=== PATIENT | female | born 1935 | race Caucasian/White ===

== ENCOUNTER 2016-06-10 00:07 | Inpatient (IN) | payer MEDICARE, OTHER ==
--- NOTE | ~2016-06-10 | HP ---
History And Physical [id number] [facility] [place]. [address] NAME: SIMBA GHOSH : 31 STATUS : ADM IN [facility]#: [id number] AGE: 80 ADM/REG DATE : 06/10/16 MR#: [id number] REPORT SERV DATE: 06/10/16 DICTATED BY: JULIO CARTAGENA DATE: 06/10/16 REPORT STATUS : Draft TRANSCRIBED BY: MODL DATE: 06/10/16 DATE OF ADMISSION: 06/10/2016 CHIEF COMPLAINT: This is a patient I had accepted in transfer to [facility] from [facility] where she was an inpatient since 06/05/2016. Actually one of my daytime colleagues had accepted the patient in transfer earlier in the day and she arrived at nighttime. According to data, she was admitted there for acute respiratory failure with hypoxemia, community-acquired pneumonia. She was treated with IV antibiotics and other treatments, and was initially in the Medical Intensive Care Unit, subsequently transferred to the floor when she stabilized. She had a swallow study there which showed she need thicken liquids. Subsequently, the patient and family wanted the patient to be transferred to [facility]. Dr. Lu was called and he facilitated the transfer. At the time of my evaluation here, Mrs. Ghosh was quite comfortable on 2 L of oxygen via nasal cannula. She was alert, awake, oriented and was able to relate or recount everything that had taken place there. Her daughter was by her side. She denied any chest pain or palpitations at this time. She had no cough, hemoptysis, night sweats, or weight loss at this time. She had no nausea, vomiting, or diarrhea. PAST MEDICAL HISTORY: Significant for history of congestive heart failure, history of essential hypertension, valvular heart disease with aortic stenosis, obstructive sleep apnea on CPAP therapy, paroxysmal atrial fibrillation. She has a history of hypothyroidism, peripheral vascular disease with stents to right popliteal, left superficial femoral and right superficial femoral arteries. She has aortic stenosis as mentioned above with aortic area of 1.8 cm2. She has paroxysmal atrial fibrillation, history of GI bleeding in the past as well. She has COPD, coronary artery disease with CABG, gastroesophageal reflux disease, and hyperlipidemia. She also has depression, cholecystectomy, hysterectomy, and multiple lower extremity vascular interventions as per the procedures. SOCIAL HISTORY: She does not smoke, drink, or use recreational drugs. FAMILY HISTORY: Noncontributory. MEDICATIONS: Her medications at home were reviewed by me in the chart today and reordered by me. REVIEW OF SYSTEMS: As in history of present illness. All other systems were reviewed in detail and are quite unremarkable. PHYSICAL EXAMINATION: GENERAL: This is a pleasant 80-year-old, not in any acute distress. She is alert, awake, oriented to time, place, and person. HEENT: Pupils are equal, reacting to light and accommodating. External ocular muscles are intact. Membranes moist and pink. Sclerae are nonicteric. NECK: Supple with no jugular venous distention, lymphadenopathy, or thyromegaly. History And Physical [address] [address] NAME: SIMBA GHOSH : 33 STATUS : ADM IN [facility]#: [id number] AGE: 80 ADM/REG DATE : 06/10/16 MR#: [id number] REPORT SERV DATE: 06/10/16 DICTATED BY: JULIO CARTAGENA DATE: 06/10/16 REPORT STATUS : Draft TRANSCRIBED BY: MARCIO DATE: 06/10/16 LUNGS: Clear to auscultation with no wheezes, rubs, or crackles. HEART: Heart sounds were regular with no murmurs, rubs, or gallops. ABDOMEN: Soft and nontender. Bowel sounds are present. EXTREMITIES: No cyanosis, clubbing, or edema. NEUROLOGIC: Grossly intact. No focal sensory or motor deficits. She was able to move all four extremities. Higher functions appeared to be intact. VITAL SIGNS: Her vital signs here appeared to be stable. The nursing staff is still collecting data. LABORATORY DATA: Data from [facility] which accompanied the patient were all reviewed by me in the chart today and contents noted. I was unable to see the chest x-ray films. IMPRESSION: 1. Community-acquired pneumonia. 2. Acute respiratory failure with hypoxemia. 3. Acute on chronic systolic congestive heart failure with bilateral pleural effusions. 4. Sepsis by criteria. 5. Dysphagia and aspiration. 6. Obstructive sleep apnea, on CPAP therapy. 7. Hypertension. 8. Valvular heart disease with aortic stenosis. 9. Paroxysmal atrial fibrillation. 10.Chronic obstructive pulmonary disease. PLAN: We will admit Mrs. Ghosh to the Hospitalist Service in a telemetry bed for close monitoring. We will obtain cultures and change her antibiotics to vancomycin and Zosyn to cover for nosocomial infections or healthcare associated pneumonia. We will follow gram stains and cultures, and adjust accordingly. We will go ahead and get a chest x-ray, portable this morning along with a.m. labs including CBC, CMP, troponin level, lactate, and procalcitonin levels. We will also check her random cortisol level. We will get an ABG in the morning and also a 12-lead EKG as well. She may need an echocardiogram in the morning and we will consult Dr. Lu to see her here. Meanwhile, we will maximize her bronchodilator treatments, continue supplemental oxygen therapy. We will continue blood pressure medication that she is on and add hydralazine intravenously on an as-needed basis. We will continue all other medications and treatments at this time and she will be on unfractionated heparin for DVT prophylaxis while she is here. I have discussed all this at great length with the patient and her daughter, both her very pleased and they understand and agree with the above recommendations. Further recommendations will be after Dr. Lu also has a chance to see the patient. Hospitalist Service will be glad to follow her during her stay here. /MARCIO Julio Cartagena M.D. History And Physical [address] [address] NAME: SIMBA GHOSH : 33 STATUS : ADM IN [facility]#: [id number] AGE: 80 ADM/REG DATE : 06/10/16 MR#: [id number] REPORT SERV DATE: 06/10/16 DICTATED BY: JULIO CARTAGENA DATE: 06/10/16 REPORT STATUS : Draft TRANSCRIBED BY: MARCIO DATE: 06/10/16 / [id number] CC: Anu Ely M.D.
--- NOTE | ~2016-06-10 | DS ---
Discharge Summary [facility] [address] [place]. [address] NAME: SIMBA HARRINGTON : 31 STATUS : ADM IN [facility]#: [id number] AGE: 80 ADM/REG DATE : 06/10/16 MR#: [id number] REPORT SERV DATE: 06/16/16 DICTATED BY: ANU ELY DATE: 06/16/16 REPORT STATUS : Draft TRANSCRIBED BY: MODL DATE: 06/16/16 ADMISSION DATE: 06/10/2016 DISCHARGE DATE: 06/16/2016 DISCHARGE DIAGNOSIS: 1. Acute respiratory failure, improved. The patient does not need home oxygen use. 2. Acute on chronic heart failure due to lack of diuretic use and previous admission at [facility] [place] while she was there right before this hospitalization. 3. Emphysema/chronic obstructive pulmonary disease exacerbation. 4. There is no evidence of pneumonia on this admission. The patient was treated with antibiotics prior to this admission at [facility] before the transfer. 5. Aortic stenosis, it is my mild to moderate. The patient is followed by Dr. Lu. 6. Acute new finding of dysphagia. The patient's diet was changed to puree diet, she is tolerating well, and she is going to have speech therapy at [facility]. 7. Hypertension. Her Catapres was increased and clonidine patch was added for maintaining use. HISTORY OF PRESENT ILLNESS: This is an 80-year-old female patient, who does have multiple arthrosclerotic diseases including congestive heart failure, coronary artery disease, and peripheral vascular disease. She was transferred from the [facility] [place] after 7 days of hospital stay over there. The patient's family requested to be transferred to [facility] to Dr. Lu's care. The patient was accepted by hospitalist Service and admitted to the hospital. HOSPITAL COURSE: She was treated with pneumonia while she was at [facility]. She came to us with a hypoxia issue. She has treated with increased dose of diuretics, and she improved. She does have a history of aortic stenosis and had a repeat echocardiogram done on this admission. It did not show significant change on her left ventricular function, but it showed moderate aortic stenosis. Also, her hypoxia is more related to recent treatment in the hospital for sepsis while she was in the [facility]. Therefore, her home diuretics were resumed and had extra doses of IV diuretics. Improved, she is not requiring any home oxygen use at this point. Along with that, her blood pressure has been severely elevated. Her medication was titrated up and clonidine was increased to 0.3 mg twice a day. Also, I added a clonidine patch, 0.1 mg, every 7 days to maintain clonidine effect due to the serious side effect in case she is not able to swallow the clonidine with the current situation of dysphagia. While she was in the [facility], she was evaluated for swallow issue, and they said that she had an issue with dysphagia. We repeated her swallow test here, they recommended a puree diet, and she has a high risk of aspiration due to the muscle weakness. She is tolerating puree diet. I explained to the family, her daughter, Jr, and the patient that we need to change her diet, then getting some speech therapy over at [facility], and hopefully get re-evaluated for speech swallow/function. So far, she is tolerating her puree diet without any significant problem, and she is compliant with this change. Overall, had improvement, maximized inpatient benefit, the patient will be discharged to acute rehab for Discharge Summary [address] [place]. [address] NAME: SIMBA HARRINGTON : 31 STATUS : ADM IN [facility]#: [id number] AGE: 80 ADM/REG DATE : 06/10/16 MR#: [id number] REPORT SERV DATE: 06/16/16 DICTATED BY: ANU ELY DATE: 06/16/16 REPORT STATUS : Draft TRANSCRIBED BY: MARCIO DATE: 06/16/16 ongoing physical therapy and speech therapy. DISCHARGE MEDICATIONS: 1. Aspirin 81 mg once a day. 2. Plavix 75 mg once a day. 3. Vitamin D twice a day. 4. Coenzyme Q once a day. 5. Tricor 145 mg once a day. 6. Prozac 20 mg once in the morning time. 7. Lasix 40 mg once a day. She also takes Lasix as needed for fluid retention. 8. Synthroid 100 mcg once a day. 9. Prinivil 40 mg once a day. 10.Claritin 10 mg once a day. 11.Protonix 40 mg once a day. 12.MiraLAX powder once a day. 13.Potassium 20 mg mEq a day. 14.Exelon 9.5 topical once a day. 15.Verapamil 360 mg once a day. 16.Catapres was increased to 0.3 mg twice a day, Catapres patch was added on, 0.1 every 7 days. 17.Continue Pulmicort and Xopenex while she is in the rehab. After the rehab, she can go back to her Breo. 18.Continue folic acid once a day and Neurontin 100 mg as needed. Also, she will finish a tapering dose of prednisone from 40 down to 10 every two days. DISPOSITION: The patient was discharged to acute rehab in stable condition. TIME SPENT: More than 30 minutes. EKL/MODL Anu Ely M.D. / [id number] CC: Veronica Boles D.O. F.A.C.P.
--- NOTE | ~2016-06-10 | DS ---
Discharge Summary [facility] [address] [place]. [address] NAME: SIMBA HARRINGTON : 31 STATUS : ADM IN PAT#: [id number] AGE: 80 ADM/REG DATE : 06/10/16 MR#: [id number] REPORT SERV DATE: 06/17/16 DICTATED BY: DATE: REPORT STATUS : Draft TRANSCRIBED BY: MODL DATE: 06/17/16 ADMISSION DATE: 06/10/2016 DISCHARGE DATE: 06/17/2016 ADDENDUM For full dictated discharge summary, please see Dr. Anu Ely's dictation yesterday on 06/16/2016. The patient was actually discharged yesterday and was supposed to go to [facility] for physical and speech therapy, however, she became very hypotensive with a blood pressure as low as 73/39. After investigation, it was noted that the patient received Cardizem Extended Release crushed with her meal. This medication is not supposed to be crushed and it became Immediate Release. Since yesterday evening at 8 p.m., her blood pressure has been actually high with the blood pressure ranging from 142/63 to 187/76. I discontinued her Extended Release Cardizem and placed her on Immediate Release Cardizem q.8 hours, therefore this still could be crushed with her meals. Her discharge medications are the same except for this change. She currently is hemodynamically stable. Her physical exam is unremarkable. She will follow up with Dr. Lu as an outpatient in 4 weeks after discharge. ALEXANDRIA/ALEXISL Zefreino Akbar NP / [id number] CC: MD Alfred Henderson D.O. F.A.C.P.
[~2016-06-10 00:07] MED LIST: ADVAIR250 INH; ASAB PO; CALTRA600D PO; CAT1 PO; CLARIT10 PO; CO Q-10100 MG PO; CRESTOR10 PO; DITRO5 PO; DULERA 200 MCG/13 GM INH; EXELON9.5T TOP; FIBERCON PO; FLONASE NAS; FOLBEE PO; HALF81 PO; HORMONE PELLETS IM; KDUR20 PO; KLOR-CON M2020 MEQ PO; L40 PO; LEVOTHYROXIN75 MCG PO; LIDODERM T; LIDODERM TOP; MIRALAXPKT PO; MUCINEX1200 MG PO; MUCINEX600 MG PO; MULTIVIT/MIN PO; MULTIVITAMI1 PO; NEXIUM40 PO; P125 PO; PLAVIX PO; PRIN20 PO; PROAIR HFA INH; PROMEGA PO; PROTONIX PO; PROZAC PO; REPATHA INJECTION IM; SAL500 PO; SURBEX-T1 TAB PO; SYN1 PO; TEARS NATURA OPH; TEARS PURE OPH; TRICOR145 PO; V180SR PO; VERELAN360 MG PO; VITAMIN B PO; VITAMIN B-121000 MC1 PO; WOMENS MULTI PO
[2016-06-10] MEDS ORDERED: CAT1 PO (00:58)
[2016-06-10] MEDS ORDERED: NEUR100 PO ×2 (00:59→01:00)
[2016-06-10] MEDS ORDERED: LIDODERM TOP (01:01)
[2016-06-10] MEDS ORDERED: CLARAVIS10 MG PO (01:02)
[2016-06-10] MEDS ORDERED: BREO ELLIPTA 21 EACH INH (01:04)
[2016-06-10] MEDS ORDERED: PROAIRRESP INH (01:05)
[2016-06-10] MEDS ORDERED: TRICOR145 PO (01:05)
[2016-06-10 01:57] LABS: ALLENS TEST Pos; BE (BASE EXCESS) 2.8 MEQ/L (0 +/- 2.5); CARBOXYHEMOGLOBIN 0.3 % (0-3); DEVICE NC; HEMOBLOGIN CONTENT 13.3 G/DL (12-16); INSTRUMENT SERIAL # 35151; METHEMOGLOBIN 0.7 % (0-3); O2 CONTENT 18.2 VOL% (18-24); OPERATOR ID 17370; PCO2 (CO2 TENSION) 35 MMHG (35-45); PO2 (O2 TENSION) 100 MMHG (79-93); SAMPLE Arterial; pH 7.49 (7.37-7.43)
[2016-06-10] MEDS ORDERED: CLARIT10 PO (02:01)
[2016-06-10 03:26] LABS: BASOPHILS 0.2 %; BASOPHILS ABSOLUTE 0.02 10/3/uL (0.0-0.16); EOSINOPHILS 0 %; HEMOGLOBIN 12.4 g/dL (12.0-16.0); IMMATURE GRANULOCYTES 0.3 %; IMMATURE GRANULOCYTES ABSOLUTE 0.04 10/3/uL (0.0-0.11); LYMPHOCYTES 4.7 %; LYMPHOCYTES ABSOLUTE 0.59 10/3/uL (0.67-4.30); MANUAL DIFF NO %; MEAN CORPUS HGB CONC 33.5 g/dL (32.0-36.0); MEAN CORPUSCULAR HEMOGLOB 28.8 pg (26.0-34.0); MEAN PLATELET VOLUME 9.7 fL (9.2-13.0); MONOCYTES 3.4 %; MONOCYTES ABSOLUTE 0.43 10/3/uL (0.21-1.20); NEUTROPHILS 91.4 %; NEUTROPHILS ABSOLUTE 11.42 10/3/uL (2.02-8.40); PLATELET COUNT 381 10/3/uL (150-400); RBC DISTRIBUTION WIDTH 13.8 % (12.0-16.0); WHITE BLOOD CELLS 12.5 10/3/uL (4.5-10.5)
[2016-06-10 03:43] LABS: TROPONIN I 0.02 NG/ML (<0.05)
[2016-06-10 04:05] LABS: A/G RATIO 0.8 (0.7-1.9); ALBUMIN 3.1 G/DL (3.5-5.0); ALKALINE PHOSPHATASE 35 U/L (45-117); CALCIUM, SERUM 8.3 MG/DL (8.5-10.4); CHLORIDE, SERUM 104 MMOL/L (96-112); CO2 (CARBON DIOXIDE) 27 MMOL/L (24-34); CREATININE 0.85 MG/DL (0.55-1.02); GFR AFRICAN AMERICAN 74 ML/MIN (>=60); GFR NON AFRICAN AMERICAN 64 ML/MIN (>=60); GLOBULIN 3.7 G/DL (2.5-4.1); PHOSPHORUS, SERUM 2.3 MG/DL (2.5-4.5); POTASSIUM, SERUM 3.6 MMOL/L (3.5-5.3); SGOT(AST) 35 U/L (5-40); SGPT(ALT) 26 U/L (5-65); TOTAL BILIRUBIN 0.4 MG/DL (0-1.2); TOTAL PROTEIN 6.8 G/DL (6.0-8.5)
[2016-06-10 04:06] LABS: BUN (BLOOD UREA NITROGEN) 23 MG/DL (6-23); GLUCOSE, SERUM 174 MG/DL (60-99); SODIUM, SERUM 144 MMOL/L (135-148)
[2016-06-10 04:07] LABS: ULTRASENSITIVE TSH 0.153 MCIU/ML (0.358-3.740)
[2016-06-10 05:05] LABS: PROCALCITONIN <0.05 ng/mL (<0.5)
[2016-06-10] MEDS ORDERED: PROZAC PO (10:29)
[2016-06-10] MEDS ORDERED: L40 PO (10:30)
[2016-06-10] MEDS ORDERED: LISINOPRIL40 MG PO (10:37)
[2016-06-10] MEDS ORDERED: PROTONIX PO (10:39)
[2016-06-10] MEDS ORDERED: FIBERCON PO (10:45)
[2016-06-10] MEDS ORDERED: CENTRUM PO (10:46)
[2016-06-10] MEDS ORDERED: T PO (10:48)
[2016-06-10] MEDS ORDERED: REFRESH OPH (10:49)
[2016-06-10] MEDS ORDERED: ICY HOT PATCH TOP (10:50)
[2016-06-11 04:56] LABS: HEMATOCRIT 35.3 % (36.0-48.0); HEMOGLOBIN 11.7 g/dL (12.0-16.0); MEAN CORPUS HGB CONC 33.1 g/dL (32.0-36.0); MEAN CORPUSCULAR HEMOGLOB 28.8 pg (26.0-34.0); MEAN CORPUSCULAR VOLUME 86.9 fL (80-100); MEAN PLATELET VOLUME 9.6 fL (9.2-13.0); PLATELET COUNT 351 10/3/uL (150-400); RBC DISTRIBUTION WIDTH 14.2 % (12.0-16.0); RED CELL COUNT 4.06 10/6/uL (4.0-5.6); WHITE BLOOD CELLS 9.6 10/3/uL (4.5-10.5)
[2016-06-11 04:57] LABS: MANUAL DIFF YES %
[2016-06-11 05:13] LABS: BUN (BLOOD UREA NITROGEN) 22 MG/DL (6-23); CALCIUM, SERUM 8.8 MG/DL (8.5-10.4); CHLORIDE, SERUM 106 MMOL/L (96-112); CO2 (CARBON DIOXIDE) 26 MMOL/L (24-34); CREATININE 1.06 MG/DL (0.55-1.02); GFR AFRICAN AMERICAN 57 ML/MIN (>=60); GFR NON AFRICAN AMERICAN 49 ML/MIN (>=60); GLUCOSE, SERUM 197 MG/DL (60-99); POTASSIUM, SERUM 3.7 MMOL/L (3.5-5.3); SODIUM, SERUM 143 MMOL/L (135-148)
[2016-06-11 05:55] LABS: BAND NEUTROPHILS 2 %; LYMPHOCYTES 4 %; LYMPHOCYTES ABSOLUTE (CALC) 0.38 10/3/uL (0.67-4.30); MONOCYTES 7 %; MONOCYTES ABSOLUTE (CALC) 0.67 10/3/uL (0.21-1.20); NEUTROPHILS ABSOLUTE (CALC) 8.54 10/3/uL (2.02-8.40); PLATELET ESTIMATE ADQ (ADEQUATE); RBC MORPHOLOGY NORM (NORMAL); SEGMENTED NEUTROPHIL (0) 87 %; TOTAL NUCLEATED CELLS 100
[2016-06-12 07:56] LABS: BUN (BLOOD UREA NITROGEN) 19 MG/DL (6-23); CALCIUM, SERUM 8.6 MG/DL (8.5-10.4); CHLORIDE, SERUM 107 MMOL/L (96-112); CREATININE 1.05 MG/DL (0.55-1.02); GFR AFRICAN AMERICAN 57 ML/MIN (>=60); GFR NON AFRICAN AMERICAN 49 ML/MIN (>=60); POTASSIUM, SERUM 3.2 MMOL/L (3.5-5.3); SODIUM, SERUM 147 MMOL/L (135-148)
[2016-06-12 07:58] LABS: CO2 (CARBON DIOXIDE) 31 MMOL/L (24-34); GLUCOSE, SERUM 94 MG/DL (60-99)
[2016-06-13 06:07] LABS: BUN (BLOOD UREA NITROGEN) 19 MG/DL (6-23); CALCIUM, SERUM 8.6 MG/DL (8.5-10.4); CHLORIDE, SERUM 102 MMOL/L (96-112); CO2 (CARBON DIOXIDE) 29 MMOL/L (24-34); CREATININE 1.01 MG/DL (0.55-1.02); GFR AFRICAN AMERICAN 60 ML/MIN (>=60); GFR NON AFRICAN AMERICAN 52 ML/MIN (>=60); POTASSIUM, SERUM 3.4 MMOL/L (3.5-5.3); SODIUM, SERUM 144 MMOL/L (135-148)
[2016-06-13 06:09] LABS: GLUCOSE, SERUM 118 MG/DL (60-99)
[2016-06-14 06:31] LABS: BASOPHILS 0.3 %; BASOPHILS ABSOLUTE 0.02 10/3/uL (0.0-0.16); EOSINOPHILS 3.2 %; EOSINOPHILS ABSOLUTE 0.24 10/3/uL (0.0-0.53); HEMATOCRIT 38.1 % (36.0-48.0); HEMOGLOBIN 12.6 g/dL (12.0-16.0); IMMATURE GRANULOCYTES 1.6 %; IMMATURE GRANULOCYTES ABSOLUTE 0.12 10/3/uL (0.0-0.11); LYMPHOCYTES 24.2 %; LYMPHOCYTES ABSOLUTE 1.79 10/3/uL (0.67-4.30); MEAN CORPUS HGB CONC 33.1 g/dL (32.0-36.0); MEAN CORPUSCULAR VOLUME 87.8 fL (80-100); MEAN PLATELET VOLUME 9.6 fL (9.2-13.0); MONOCYTES 7.4 %; MONOCYTES ABSOLUTE 0.55 10/3/uL (0.21-1.20); NEUTROPHILS 63.3 %; NEUTROPHILS ABSOLUTE 4.68 10/3/uL (2.02-8.40); PLATELET COUNT 406 10/3/uL (150-400); RBC DISTRIBUTION WIDTH 14.4 % (12.0-16.0); RED CELL COUNT 4.34 10/6/uL (4.0-5.6); WHITE BLOOD CELLS 7.4 10/3/uL (4.5-10.5)
[2016-06-14 06:32] LABS: MANUAL DIFF NO %
[2016-06-14 06:36] LABS: BUN (BLOOD UREA NITROGEN) 20 MG/DL (6-23); CALCIUM, SERUM 8.9 MG/DL (8.5-10.4); CHLORIDE, SERUM 101 MMOL/L (96-112); CO2 (CARBON DIOXIDE) 29 MMOL/L (24-34); CREATININE 1.15 MG/DL (0.55-1.02); GFR AFRICAN AMERICAN 51 ML/MIN (>=60); GFR NON AFRICAN AMERICAN 44 ML/MIN (>=60); GLUCOSE, SERUM 129 MG/DL (60-99); SODIUM, SERUM 141 MMOL/L (135-148)
[2016-06-14 06:37] LABS: POTASSIUM, SERUM 4.3 MMOL/L (3.5-5.3)
[2016-06-15 04:23] LABS: BUN (BLOOD UREA NITROGEN) 21 MG/DL (6-23); CALCIUM, SERUM 8.8 MG/DL (8.5-10.4); CHLORIDE, SERUM 101 MMOL/L (96-112); CO2 (CARBON DIOXIDE) 28 MMOL/L (24-34); CREATININE 1.17 MG/DL (0.55-1.02); GFR AFRICAN AMERICAN 50 ML/MIN (>=60); GFR NON AFRICAN AMERICAN 43 ML/MIN (>=60); GLUCOSE, SERUM 134 MG/DL (60-99); POTASSIUM, SERUM 4.2 MMOL/L (3.5-5.3); SODIUM, SERUM 141 MMOL/L (135-148)
[2016-06-16 05:16] LABS: CALCIUM, SERUM 8.6 MG/DL (8.5-10.4); CHLORIDE, SERUM 101 MMOL/L (96-112); CO2 (CARBON DIOXIDE) 27 MMOL/L (24-34); CREATININE 1.16 MG/DL (0.55-1.02); GFR AFRICAN AMERICAN 51 ML/MIN (>=60); GFR NON AFRICAN AMERICAN 44 ML/MIN (>=60); GLUCOSE, SERUM 128 MG/DL (60-99); POTASSIUM, SERUM 3.9 MMOL/L (3.5-5.3); SODIUM, SERUM 138 MMOL/L (135-148)
[2016-06-16 05:20] LABS: BUN (BLOOD UREA NITROGEN) 15 MG/DL (6-23)
[2016-06-17 05:15] LABS: BUN (BLOOD UREA NITROGEN) 15 MG/DL (6-23); CALCIUM, SERUM 8.2 MG/DL (8.5-10.4); CHLORIDE, SERUM 107 MMOL/L (96-112); CO2 (CARBON DIOXIDE) 26 MMOL/L (24-34); CREATININE 1.22 MG/DL (0.55-1.02); GFR AFRICAN AMERICAN 48 ML/MIN (>=60); GFR NON AFRICAN AMERICAN 41 ML/MIN (>=60); GLUCOSE, SERUM 108 MG/DL (60-99); POTASSIUM, SERUM 4.1 MMOL/L (3.5-5.3); SODIUM, SERUM 139 MMOL/L (135-148)
== END 2016-06-17 15:09 | DRG 291 ==
LOC: 7NO 00:07
PROVIDERS: Internal Medicine; Internal Medicine Cardiovascular Disease
DX: I11.0 Hypertensive heart disease with heart failure (principal); J96.01 Acute respiratory failure with hypoxia; A41.9 Sepsis, unspecified organism; J44.1 Chronic obstructive pulmonary disease with (acute) exacerbation; R13.12 Dysphagia, oropharyngeal phase; I95.2 Hypotension due to drugs; I50.23 Acute on chronic systolic (congestive) heart failure; G47.33 Obstructive sleep apnea (adult) (pediatric); I35.0 Nonrheumatic aortic (valve) stenosis; I48.2 Chronic atrial fibrillation; I48.0 Paroxysmal atrial fibrillation; I73.9 Peripheral vascular disease, unspecified; K21.9 Gastro-esophageal reflux disease without esophagitis; F32.9 Major depressive disorder, single episode, unspecified; T46.1X5A Adverse effect of calcium-channel blockers, initial encounter; I25.10 Atherosclerotic heart disease of native coronary artery without angina pectoris; Z95.1 Presence of aortocoronary bypass graft; Z90.49 Acquired absence of other specified parts of digestive tract; Z90.710 Acquired absence of both cervix and uterus; Z79.82 Long term (current) use of aspirin; Z79.02 Long term (current) use of antithrombotics/antiplatelets
CPT/HCPCS: 36600; 71010; 74230; 80048; 80053; 82533; 82805; 83605; 83735; 83880; 84100; 84132; 84145; 84443; 84484; 85025; 87040; 92610-GN; 92611-GN; 93005; 93306; 94640; 94668; 97116-GP; 97161-GP; A9270-GY; G8978-CK-GP; G8979-CI-GP; G8996-CJ-GN; G8996-CN-GN; G8997-CJ-GN; G8997-CN-GN; G8998-CJ-GN; G8998-CN-GN; J0360; J1720; J1940; J2543; J2920; J3370